=== PATIENT | female | born 1945 | race Caucasian/White ===

== ENCOUNTER 2022-07-11 18:36 | Outpatient (RCR) | payer MEDICARE, OTHER, SELFPAY | END 2022-08-04 23:59 | disposition home or self-care (01) | LOC: MM 18:36 | PROVIDERS: PCP Internal Medicine; Visit Provider Internal Medicine | DX: Z51.81 Encounter for therapeutic drug level monitoring (principal); Z79.01 Long term (current) use of anticoagulants; I48.91 Unspecified atrial fibrillation ==

== ENCOUNTER 2022-08-09 10:14 | Outpatient (RCR) | payer MEDICARE, OTHER, SELFPAY | END 2022-09-04 17:08 | disposition home or self-care (01) | LOC: MM 10:14 | PROVIDERS: PCP Internal Medicine; Visit Provider Internal Medicine | DX: Z51.81 Encounter for therapeutic drug level monitoring (principal); Z79.01 Long term (current) use of anticoagulants; I48.91 Unspecified atrial fibrillation ==

== ENCOUNTER 2022-09-05 09:40 | Outpatient (RCR) | payer MEDICARE, OTHER, SELFPAY | END 2022-10-05 17:42 | disposition home or self-care (01) | LOC: MM 09:40 | PROVIDERS: PCP Internal Medicine; Visit Provider Internal Medicine | DX: Z51.81 Encounter for therapeutic drug level monitoring (principal); Z79.01 Long term (current) use of anticoagulants; I48.91 Unspecified atrial fibrillation ==

== ENCOUNTER 2022-10-06 10:37 | Outpatient (RCR) | payer MEDICARE, OTHER, SELFPAY | END 2022-11-03 17:01 | disposition home or self-care (01) | LOC: MM 10:37 | PROVIDERS: PCP Internal Medicine; Visit Provider Internal Medicine | DX: Z51.81 Encounter for therapeutic drug level monitoring (principal); Z79.01 Long term (current) use of anticoagulants; I48.91 Unspecified atrial fibrillation | CPT/HCPCS: 85610; G0463 ==

== ENCOUNTER 2022-11-06 02:07 | Outpatient (RCR) | payer MEDICARE, OTHER, SELFPAY | END 2022-12-05 17:29 | disposition home or self-care (01) | LOC: MM 02:07 | PROVIDERS: PCP Internal Medicine; Visit Provider Internal Medicine | DX: Z51.81 Encounter for therapeutic drug level monitoring (principal); Z79.01 Long term (current) use of anticoagulants; I48.91 Unspecified atrial fibrillation ==

== ENCOUNTER 2022-12-06 00:28 | Outpatient (RCR) | payer MEDICARE, OTHER, SELFPAY | END 2023-01-04 16:43 | disposition home or self-care (01) | LOC: MM 00:28 | PROVIDERS: PCP Internal Medicine; Visit Provider Internal Medicine | DX: Z51.81 Encounter for therapeutic drug level monitoring (principal); Z79.01 Long term (current) use of anticoagulants; I48.91 Unspecified atrial fibrillation ==